=== PATIENT | female | born 1975 | race African-American/Black ===

== ENCOUNTER 2017-02-18 17:29 | Inpatient (IN) | payer OTHER ==
[~2017-02-18] VITALS: Ht 182.9 cm; Wt 109.0 kg
[2017-02-18] VITALS (22 sets, daily range): BP systolic 126–157; BP diastolic 60–95
[~2017-02-18 17:29] MED LIST: ENDOCET 5-3251 EACH PO; FLEXERIL10 MG PO; GLYBURIDE2.5 MG PO; IBUPROFEN800 MG PO; Motrin PO; PREFERA-OB P1 TABLET PO
[2017-02-18 18:08] LABS: EOSINOPHIL (%) 0.3 % (0-5); HEMATOCRIT 34.6 % (36.0-46.0); IMMATURE GRANULOCYTE (%) 0.4 % (0.0-0.7); INSTRUMENT ABS NEUTROPHIL CT 5.6 K/uL; LYMPHOCYTE COUNT 1.2 K/uL (1.0-2.8); MCH 29.7 PG (29.0-34.0); MCHC 32.7 G/DL (30.0-36.0); MCV 91.1 FL (83-99); MEAN PLAT.VOLUME 10.7 uM^3 (9.5-12.4); MONOCYTE COUNT 0.6 K/uL (0-0.8); NEUTROPHIL (%) 74.7 % (45-76); NEUTROPHIL COUNT 5.6 K/uL (1.8-6.4); PLATELET COUNT 219 K/uL (156-360); RBC DIS.WIDTH-CV 15.1 % (11.8-14.6); RBC DIS.WIDTH-SD 49.8 % (39-53); WHITE BLOOD COUNT 7.5 K/uL (4.1-10.2)
[2017-02-18] MEDS ORDERED: GLUCOPHAGE500 MG PO (18:16)
[2017-02-18 19:48] LABS: DRSB INTERNAL CONTROL PASS; PROBE CHECK PASS; SPECIMEN PROCESSING CONTROL PASS
[2017-02-18 23:46] LABS: POINT-OF-CARE METER ID UU13113801
[2017-02-19] VITALS (9 sets, daily range): BP systolic 106–142; BP diastolic 57–73
[2017-02-19] MEDS ORDERED: IBUPROFEN800 MG PO (01:05)
[2017-02-20 07:41] VITALS: BP 120/74
[2017-02-20 14:30] VITALS: BP 119/75
[2017-02-20 22:51] VITALS: BP 121/88
[2017-02-21 07:34] VITALS: BP 114/67
[2017-02-21 15:02] VITALS: BP 112/63
== END 2017-02-21 16:50 | disposition home or self-care (01) | DRG 774 ==
LOC: LDRP-OP 17:29 → 2WEST 17:31 → LDRP-OP 04-12 14:17
PROVIDERS: Midwife; Obstetrics & Gynecology
DX: O98.42 Viral hepatitis complicating childbirth (principal); B18.1 Chronic viral hepatitis B without delta-agent; O98.32 Other infections with a predominantly sexual mode of transmission complicating childbirth; O99.214 Obesity complicating childbirth; O24.415 Gestational diabetes mellitus in pregnancy, controlled by oral hypoglycemic drugs; E66.9 Obesity, unspecified; Z68.34 Body mass index [BMI] 34.0-34.9, adult; Z3A.37 37 weeks gestation of pregnancy; Z37.0 Single live birth; A60.00 Herpesviral infection of urogenital system, unspecified; O77.0 Labor and delivery complicated by meconium in amniotic fluid
CPT/HCPCS: 82948; 85025; 87653; C1755; G0378; J2540; J7120